=== PATIENT | male | born 1970 | race Caucasian/White ===

== ENCOUNTER 2017-11-18 16:24 | Inpatient (IN) | payer BC ==
[2017-11-18] VITALS (7 sets, daily range): BP systolic 89–113; BP diastolic 44–64
[~2017-11-18] VITALS: Ht 162.6 cm; Wt 83.9 kg
[~2017-11-18 16:24] MED LIST: MOTRIN800 MG PO; SKELAXIN800 MG PO; VICODIN 5/500 505 MG PO
[2017-11-18 17:07] LABS: HEMOGLOBIN 12.8 g/dl (14.0-18.0); MEAN CELL VOLUME 81.1 fl (80.0-94.0); MEAN CORPUSCULAR HGB 26.6 pg (27.0-31.0); MEAN CORPUSCULAR HGB CONC 32.8 g/dl (33.0-37.0); MEAN PLATELET VOLUME 10.4 fl (9.6-12.3); PLATELET COUNT AUTOMATED 400 10*3/uL (130-400); RED BLOOD COUNT 4.81 10*6/uL (4.50-5.90); RED CELL DISTRI WIDTH 12.9 % (0-14.5); WHITE BLOOD COUNT 28.2 10*3/uL (4.8-10.8)
[2017-11-18 17:25] LABS: ALBUMIN 3.9 gm/dl (3.1-4.5); CREATININE 2.01 mg/dL (0.70-1.30); TOTAL CELLS COUNTED 100 #CELLS; TOTAL PROTEIN 7.8 gm/dL (6.4-8.2)
[2017-11-18 17:27] LABS: BURR CELLS FEW; PLATELET SUFFICIENCY HIGH (NORMAL)
[2017-11-18 17:31] LABS: POTASSIUM 6.2 mmol/L (3.5-5.1)
[2017-11-18] MEDS ORDERED: CRESTOR20 M1 PO (18:59)
[2017-11-18] MEDS ORDERED: ZESTRIL40 MG PO (19:00)
[2017-11-18] MEDS ORDERED: VITAMIN D31000 UNI1 PO (19:01)
[2017-11-18] MEDS ORDERED: NOVOLOG10 ML IV (19:01)
[2017-11-18] MEDS ORDERED: VITAMIN D350000 UNIT PO (19:01)
[2017-11-18] MEDS ORDERED: OMEPRAZOLE20 M2 PO (19:02)
[2017-11-18] MEDS ORDERED: ONE DAILY ESSE1 EACH PO (19:03)
[2017-11-18 19:07] LABS: ABG HCO3 8.6 mmol/l (22-26); ABG O2 SATURATION 98.8 % (95-97); ARTERIAL BLOOD GAS PH 7.257 (7.35-7.45)
[2017-11-18 22:37] LABS: CREATININE 1.8 mg/dL (0.70-1.30); POTASSIUM 4.2 mmol/L (3.5-5.1)
[2017-11-19] VITALS: BP 94/57
[2017-11-19 02:01] LABS: BUN 44 mg/dl (7-24); CHLORIDE 108 mmol/L (98-107); POTASSIUM 4.2 mmol/L (3.5-5.1); SODIUM 138 mmol/L (136-145)
[2017-11-19 04:00] VITALS: BP 96/56
[2017-11-19 06:51] LABS: MEAN CELL VOLUME 78.2 fl (80.0-94.0); MEAN CORPUSCULAR HGB 26.5 pg (27.0-31.0); MEAN CORPUSCULAR HGB CONC 33.9 g/dl (33.0-37.0); MEAN PLATELET VOLUME 9.8 fl (9.6-12.3); PLATELET COUNT AUTOMATED 296 10*3/uL (130-400); RED BLOOD COUNT 4.04 10*6/uL (4.50-5.90); RED CELL DISTRI WIDTH 13.4 % (0-14.5); WHITE BLOOD COUNT 18.9 10*3/uL (4.8-10.8)
[2017-11-19 07:05] LABS: HEMATOCRIT 31.6 % (42.0-52.0); HEMOGLOBIN 10.7 g/dl (14.0-18.0)
[2017-11-19 07:28] LABS: PHOSPHOROUS 3.1 mg/dL (2.5-4.9)
[2017-11-19 07:30] LABS: ACT PARTIAL THROMBO TIME 25.2 SECONDS (20.8-31.5); INTERNATIONAL NORM RATIO 1.1 (2.0-3.5)
[2017-11-19 07:31] LABS: CHLORIDE 108 mmol/L (98-107); POTASSIUM 3.9 mmol/L (3.5-5.1); SODIUM 137 mmol/L (136-145)
[2017-11-19 07:34] LABS: THYROID STIM HORMONE (HS) 0.503 uIU/ml (0.358-4.75)
[2017-11-19 07:39] LABS: BUN 37 mg/dl (7-24); CREATININE 1.26 mg/dL (0.70-1.30)
[2017-11-19 08:00] VITALS: BP 98/53
[2017-11-19 08:02] LABS: BASOPHILS 2 % (0-1); TOTAL CELLS COUNTED 100 #CELLS
[2017-11-19 08:03] LABS: BURR CELLS FEW; MICROCYTOSIS SLIGHT; PLATELET SUFFICIENCY NORMAL (NORMAL)
[2017-11-19 08:10] LABS: VITAMIN D, 25-HYDROXY 90.9 ng/mL (30-100)
[2017-11-19 11:37] LABS: BILIRUBIN NEGATIVE (NEGATIVE); BLOOD TRACE-INTACT (NEGATIVE); CLARITY CLEAR (CLEAR); COLOR YELLOW (YELLOW); GLUCOSE 2+ (NEGATIVE); KETONE 3+ (NEGATIVE); LEUKO ESTERASE NEGATIVE (NEGATIVE); NITRITE NEGATIVE (NEGATIVE); SPECIFIC GRAVITY 1.015 (1.005-1.030); UROBILINOGEN 0.2 E.U./dl (0.2-1.0)
[2017-11-19 12:00] VITALS: BP 105/57
[2017-11-19 12:07] LABS: BUN 29 mg/dl (7-24); CHLORIDE 106 mmol/L (98-107); CREATININE 1.36 mg/dL (0.70-1.30); POTASSIUM 4.2 mmol/L (3.5-5.1); SODIUM 134 mmol/L (136-145)
[2017-11-19 12:18] LABS: BACTERIA TRACE; EPITHELIAL CELLS 0-2
[2017-11-19 16:00] VITALS: BP 114/66
[2017-11-19 18:09] LABS: BUN 22 mg/dl (7-24); CHLORIDE 105 mmol/L (98-107); CREATININE 1.05 mg/dL (0.70-1.30); POTASSIUM 3.7 mmol/L (3.5-5.1); SODIUM 134 mmol/L (136-145)
[2017-11-19 20:00] VITALS: BP 102/74
[2017-11-20] VITALS: BP 105/61
[2017-11-20 04:00] VITALS: BP 111/60
[2017-11-20 06:03] LABS: BASO # 0.1 10*3/uL (0.0-0.1); BASO % 0.5 % (0.0-1.0); EOS % 0.3 % (1.0-4.0); HEMATOCRIT 32.2 % (42.0-52.0); HEMOGLOBIN 10.8 g/dl (14.0-18.0); LYMPH # 2.4 10*3/uL (1.3-4.4); LYMPH % 24.8 % (27.0-41.0); MEAN CELL VOLUME 78.9 fl (80.0-94.0); MEAN CORPUSCULAR HGB 26.5 pg (27.0-31.0); MEAN CORPUSCULAR HGB CONC 33.5 g/dl (33.0-37.0); MEAN PLATELET VOLUME 9.9 fl (9.6-12.3); MONO % 10.6 % (3.0-9.0); NEUT % 63.5 % (47.0-73.0); PLATELET COUNT AUTOMATED 224 10*3/uL (130-400); RED BLOOD COUNT 4.08 10*6/uL (4.50-5.90); RED CELL DISTRI WIDTH 13.6 % (0-14.5); WHITE BLOOD COUNT 9.5 10*3/uL (4.8-10.8)
[2017-11-20 06:08] LABS: ALBUMIN 2.9 gm/dl (3.1-4.5); CHLORIDE 109 mmol/L (98-107); CREATININE 0.82 mg/dL (0.70-1.30); PHOSPHOROUS 2.5 mg/dL (2.5-4.9); POTASSIUM 3.7 mmol/L (3.5-5.1); SGOT/AST 49 IU/L (3-35); SGPT/ALT 30 U/L (12-78); SODIUM 141 mmol/L (136-145)
[2017-11-20 06:09] LABS: BUN 12 mg/dl (7-24)
[2017-11-20 06:10] LABS: ALKALINE PHOSPHATASE 125 U/L (45-117); TOTAL PROTEIN 6.1 gm/dL (6.4-8.2)
[2017-11-20 08:00] VITALS: BP 114/67
[2017-11-20 12:00] VITALS: BP 124/70
[2017-11-20 16:00] VITALS: BP 132/83
[2017-11-20 20:00] VITALS: BP 129/79
[2017-11-21] VITALS: BP 111/75
[2017-11-21 08:00] VITALS: BP 130/76
== END 2017-11-21 12:11 | disposition home or self-care (01) | DRG 637 ==
LOC: ED 16:24 → ICCU 17:55 → EDHOLD 17:55 → ICCU 18:13 → 4E 11-20 15:27
PROVIDERS: Internal Medicine; Nurse Practitioner Family; Student in an Organized Health Care Education/Training Program
DX: E10.10 Type 1 diabetes mellitus with ketoacidosis without coma (principal); N17.0 Acute kidney failure with tubular necrosis; E44.0 Moderate protein-calorie malnutrition; E87.5 Hyperkalemia; D50.9 Iron deficiency anemia, unspecified; E78.5 Hyperlipidemia, unspecified; E86.0 Dehydration; K21.9 Gastro-esophageal reflux disease without esophagitis; I10 Essential (primary) hypertension; R00.0 Tachycardia, unspecified; E55.9 Vitamin D deficiency, unspecified; Z79.4 Long term (current) use of insulin; Z82.49 Family history of ischemic heart disease and other diseases of the circulatory system; Z79.899 Other long term (current) drug therapy; Z68.31 Body mass index [BMI] 31.0-31.9, adult